=== PATIENT | female | born 1950 | race Caucasian/White ===

== ENCOUNTER 2019-09-11 06:54 | Day surgery (SDC) | payer MEDICARE, BC, OTHER ==
[~2019-09-11] VITALS: Ht 167.6 cm; Wt 89.1 kg
[~2019-09-11 06:54] MED LIST: AMIL5TAB4 PO; CARD180C4 PO; EQL400CA9 PO; KLOR10TA76 PO; LIDOCAINE 1% MDV 20ML VIAL SQ PRN; MULTCAP PO; PRAV20TA2 PO; PROG1CAP8 PO; TORS10TA3 PO
[2019-09-11] MEDS ORDERED: LR 1,000 ML IV ONE (07:00)
[2019-09-11 07:24] LABS: HEMATOCRIT 37.6 % (36.0-47.0); HEMOGLOBIN 12.2 g/dl (12.0-15.5); MEAN CORPUSCULAR HEMOGLOBIN 28.6 pg (27.0-33.0); MEAN CORPUSCULAR HGB CONC 32.4 g/dl (32.0-36.5); MEAN CORPUSCULAR VOLUME 88.3 fl (80.0-96.0); PLATELET COUNT, AUTOMATED 226 10^3/uL (150-450); RED BLOOD COUNT 4.26 10^6/uL (4.00-5.40)
[2019-09-11] MEDS ORDERED: fentaNYL 100 MCG/2 ML INJECTION (J3010) As Ordered ONE (07:58)
[2019-09-11] MEDS ORDERED: MIDAZOLAM INJ 2 MG/2 ML VIAL (J2250) As Ordered ONE (07:59)
[2019-09-11] MEDS ORDERED: dexameTHASONE 4 MG/ML 1ML VIAL (J1100) As Ordered ONE (07:59)
[2019-09-11] MEDS ORDERED: ONDANSETRON 4MG/2ML VIAL (J2405) As Ordered ONE (07:59)
[2019-09-11] MEDS ORDERED: PROPOFOL 200 MG/20 ML VIAL As Ordered ONE (07:59)
[2019-09-11] MEDS ORDERED: LIDOCAINE 2% INJ 100 MG/5 ML SDV (FOR ANES.) As Ordered ONE (07:59)
[2019-09-11] MEDS ORDERED: ACETAMINOPHEN 1000MG 100ML IV BTL (OFIRMEV) (J0131 PER 10MG) As Ordered ONE (08:42)
[2019-09-11] MEDS ORDERED: IBUPROFEN 800 MG TAB As Ordered ONE (09:22)
[2019-09-11] MEDS ORDERED: LR 1,000 ML IV SCH (09:30)
[2019-09-11] MEDS ORDERED: PERCOCET 5MG/325MG TAB PO PRN ×2 (09:30)
[2019-09-11] MEDS ORDERED: HYDROMORPHONE HCL 0.5 MG/ 0.5 ML SYRINGE (J1170 PER 1) IV PRN (09:30)
[2019-09-11] MEDS ORDERED: fentaNYL 100 MCG/2 ML INJECTION (J3010) IV PRN (09:30)
[2019-09-11] MEDS ORDERED: ONDANSETRON 4MG/2ML VIAL (J2405) IV PRN (09:30)
[2019-09-11 09:38] VITALS: BP 141/68
--- NOTE | 2019-09-11 12:46 | ECGEPIP ---
[facility] Test Date: 2019-09-11 Pat Name: TOLU FARR Department: Room: - Gender: Female [employer]: THIAGO : 1950 Requested By: Manish Augustin Order Number: [id number] Reading MD: Milagro Tatum Measurements Intervals [place] Rate: 73 P: -9 [place]: 142 QRS: 32 QRSD: 80 T: 31 QT: 378 QTc: 418 Interpretive Statements SINUS RHYTHM NO PRIOR Electronically Signed on 09-11-2019 12:45:52 EDT by Milagro Tatum
[2019-09-11] MEDS ORDERED: IBUPROFEN 800 MG TAB PO SCH (15:00)
--- NOTE | 2019-09-11 18:58 | RO ---
DATE OF PROCEDURE: 09/11/2019 Angeles is a 68-year-old female with postmenopausal bleeding. After counseling in the office, a decision was made to proceed with a dilation and curettage (D and C), hysteroscopy. The patient also was found to have thickened endometrium on ultrasound. PREOPERATIVE DIAGNOSES: 1. Postmenopausal bleeding. 2. Thickened endometrium. POSTOPERATIVE DIAGNOSES: 1. Postmenopausal bleeding. 2. Thickened endometrium. 3. Endometrial polyp with an irregular endometrial cavity. PROCEDURE: 1. Dilation and curettage. 2. Hysteroscopy. 3. Polypectomy. SURGEON: Manish Augustin DO BASKET PERSON: ANESTHESIA: General. COMPLICATIONS: None. ESTIMATED BLOOD LOSS: Less than 20 mL. FINDINGS: Irregular endometrial cavity with small endometrial polyp. SPECIMENS SENT TO THE LAB: Endometrial curetting and polyp. DESCRIPTION OF PROCEDURE: After obtaining informed consent, the patient was taken to the operating room where general anesthetic was found to be adequate. She was then draped and prepped in the usual sterile fashion in the dorsal lithotomy position. At this point, a straight catheter bladder was performed for approximately 100 mL of clear urine. We then placed a weighted speculum in the posterior fornix of the vagina. Using a Fernandes retractor, the anterior lip of the cervix was then grasped with a single-tooth tenaculum. The uterus was then sounded to approximately 7 cm in size. The cervix was serially dilated, the hysteroscope was inserted. Irregular shape cavity noted with small endometrial polyp. No evidence of any other abnormality. At this point, the hysteroscope was removed. A sharp curettage of the endometrial lining was done and the polyps were also removed. The specimens were sent to pathology for final diagnosis. Good hemostasis noted. All instruments removed. The patient was then taken to the recovery room in stable condition.
== END 2019-09-11 09:57 | disposition home or self-care (01) ==
LOC: M SDC 06:54
PROVIDERS: ATTEND Obstetrics & Gynecology
DX: N95.0 Postmenopausal bleeding (principal); N85.00 Endometrial hyperplasia, unspecified; N84.0 Polyp of corpus uteri; I10 Essential (primary) hypertension; E78.5 Hyperlipidemia, unspecified; Z79.899 Other long term (current) drug therapy; G47.30 Sleep apnea, unspecified; Z88.1 Allergy status to other antibiotic agents
CPT/HCPCS: 36415; 58558; 85027; 86850; 86900; 86901; 88305; 93005; J0131; J1100; J2250; J2405; J3010

== ENCOUNTER 2020-03-16 13:50 | Day surgery (SDC) | payer MEDICARE, BC, OTHER ==
[2020-03-16] VITALS (7 sets, daily range): BP systolic 132–150; BP diastolic 68–88
[~2020-03-16] VITALS: Ht 167.6 cm; Wt 89.8 kg
[~2020-03-16 13:50] MED LIST changes: -LIDOCAINE 1% MDV 20ML VIAL SQ PRN
[2020-03-16] MEDS ORDERED: AMIT8CAP4 PO (13:58)
[2020-03-16] MEDS ORDERED: FERR325T81 PO (13:58)
[2020-03-16] MEDS ORDERED: DULO1CAP6 PO (13:58)
[2020-03-16 14:40] LABS: BASO % 0.4 % (0.0-1.0); EOS # 0.1 10^3/uL (0.0-0.5); EOS % 1.3 % (0.0-3.0); HEMATOCRIT 26.1 % (36.0-47.0); HEMOGLOBIN 8.3 g/dl (12.0-15.5); LYMPH # 1.7 10^3/uL (1.5-5.0); LYMPH % 31.6 % (24.0-44.0); MEAN CORPUSCULAR HEMOGLOBIN 28.9 pg (27.0-33.0); MEAN CORPUSCULAR HGB CONC 31.8 g/dl (32.0-36.5); MEAN CORPUSCULAR VOLUME 90.9 fl (80.0-96.0); MONO # 0.7 10^3/uL (0.0-0.8); MONO % 12.5 % (0.0-5.0); NEUTROPHILS # 2.8 10^3/uL (1.5-8.5); PLATELET COUNT, AUTOMATED 235 10^3/uL (150-450); RED BLOOD COUNT 2.87 10^6/uL (4.00-5.40); WHITE BLOOD COUNT 5.2 10^3/uL (4.0-10.0)
[2020-03-16 14:57] LABS: BLOOD UREA NITROGEN 15 MG/DL (7-18); CARBON DIOXIDE LEVEL 24 MEQ/L (21-32); CHLORIDE LEVEL 105 MEQ/L (98-107); CREATININE FOR GFR 0.71 MG/DL (0.55-1.30); GLOMERULAR FILTRATION RATE > 60.0 (>45); GLUCOSE, FASTING 80 MG/DL (70-100); POTASSIUM SERUM 4.2 MEQ/L (3.5-5.1); SODIUM LEVEL 137 MEQ/L (136-145)
[2020-03-16] MEDS ORDERED: C 50TAB PO (15:36)
[2020-03-16] MEDS ORDERED: ACET-897 PO (15:36)
[2020-03-16] MEDS ORDERED: VITAD1000T PO (15:36)
--- NOTE | 2020-03-16 16:09 | REP ---
PELVIC ULTRASOUND: Real-time sonographic evaluation of the pelvis is performed utilizing transabdominal and endovaginal technique. Urinary bladder is not distended. Uterus measures 10.8 x 5.5 x 6.9 cm. Endometrium is markedly thickened and heterogeneous with somewhat ill-defined margins. Maximum AP diameter is 3.5 cm. There is no endometrial fluid collection. Ovaries are not visualized. No definite adnexal mass or free fluid is seen. Nabothian cysts are seen in the region of the cervix. IMPRESSION: Markedly thickened heterogeneous endometrium, compatible with either hyperplasia or neoplasm. Ovaries are not visualized. No definite adnexal mass. Electronically Signed by Elgin Machado MD 03/16/2020 04:26 P
[2020-03-16] MEDS ORDERED: MIDAZOLAM INJ 2MG/2ML VIAL (J2250 PER 1MG) As Ordered ONE (19:28)
[2020-03-16] MEDS ORDERED: ONDANSETRON 4MG/2ML VIAL As Ordered ONE (19:29)
[2020-03-16] MEDS ORDERED: fentaNYL 250 MCG/5 ML INJECTION (J3010) As Ordered ONE (19:29)
[2020-03-16] MEDS ORDERED: LIDOCAINE 2% 100MG/5ML SDV (FOR ANES.) As Ordered ONE (19:29)
[2020-03-16] MEDS ORDERED: dexameTHASONE 4 MG/ML 1ML VIAL (J1100 PER 1MG) As Ordered ONE (19:29)
[2020-03-16] MEDS ORDERED: propofoL 200 MG/20 ML VIAL As Ordered ONE (19:29)
[2020-03-16] MEDS ORDERED: ROCURONIUM BROMIDE 50 MG/5 ML VIAL As Ordered ONE (19:29)
[2020-03-16] MEDS ORDERED: SUGAMMADEX SODIUM 500 MG/5 ML VIAL (BRIDION) As Ordered ONE (19:29)
[2020-03-16] MEDS ORDERED: FLUORESCEIN 10% (100MG/ML) 5 ML VIAL As Ordered ONE (20:06)
[2020-03-16] MEDS ORDERED: BUPIVACAINE/EPIN 0.25% 30 ML VIAL As Ordered ONE (20:06)
[2020-03-16] MEDS ORDERED: ceFAZolin 2 GM/D5W 50 ML IV BAG (J0690 PER 500MG) As Ordered ONE (20:16)
[2020-03-16] MEDS ORDERED: ONDANSETRON 4 MG TAB PO PRN (21:00)
[2020-03-16] MEDS ORDERED: PERCOCET 5MG/325MG TAB PO PRN (21:00)
[2020-03-16] MEDS: IBUPROFEN 800 MG TAB PO SCH (22:00)
[2020-03-16] MEDS ORDERED: PERCOCET PO (22:21)
[2020-03-16] MEDS ORDERED: IBUP80TA PO (22:21)
[2020-03-16] MEDS ORDERED: HYDROMORPHONE HCL 0.5 MG/ 0.5 ML SYRINGE (J1170 PER 1) IV PRN (23:00)
[2020-03-16] MEDS ORDERED: oxyCODONE 5MG TAB PO PRN (23:00)
[2020-03-16] MEDS ORDERED: LR 1,000 ML IV SCH (23:00)
[2020-03-16] MEDS ORDERED: ONDANSETRON 4MG/2ML VIAL IV PRN (23:00)
[2020-03-16] MEDS ORDERED: fentaNYL 100 MCG/2 ML INJECTION (J3010) IV PRN (23:00)
[2020-03-17] VITALS (9 sets, daily range): BP systolic 115–140; BP diastolic 68–80
--- NOTE | 2020-03-17 00:23 | RO ---
DATE OF PROCEDURE: 03/16/2020 PREOPERATIVE DIAGNOSES: 1. Postmenopausal bleeding. 2. Endometrial polyp. 3. Symptomatic anemia status post 2 units of packed RBC transfusion. 4. Acute bleeding. POSTOPERATIVE DIAGNOSES: 1. Postmenopausal bleeding. 2. Endometrial polyp. 3. Symptomatic anemia status post 2 units of packed RBC transfusion. 4. Acute bleeding. 5. Enlarged uterus with fibroids. PROCEDURE: 1. Robotic-assisted total hysterectomy. 2. Bilateral salpingo-oophorectomy. 3. Cystoscopy. SURGEON: Dr. Augustin ANESTHESIA: General. COMPLICATION: None. ESTIMATED BLOOD LOSS: Less than 50 mL. Michelle is a 69-year-old female with postmenopausal bleeding and endometrial polyp. She presented with excessive bleeding and found to be tachycardiac and symptomatic. Upon evaluation, she was found to have symptomatic anemia. She was originally scheduled for a hysterectomy. She received 2 units of packed red blood cells (RBCs) in the emergency room, continued to bleed, and at this point a decision was made to proceed with the hysterectomy. DESCRIPTION OF PROCEDURE: After obtaining informed consent, patient was taken to the operating room where general anesthetic was found to be adequate. She was then draped and prepped in usual sterile fashion in dorsal lithotomy position. At this point, a Humi-2 uterine manipulator was placed. We then turned our attention to the abdomen, where the abdomen was insufflated with carbon dioxide (CO2) gas to approximately 3.5 liters. Infraumbilical incision was made for the camera port. Then two left lateral ports were placed for robotic arm #1 and the assist port. On the right side, the 8-mm lateral port was also placed. At this point, the robot was brought to the patient's side on the right side at 45-degree angle. Patient was placed in steep Trendelenburg. The camera arm was then docked. The system was then targeted to the target anatomy, and the robotic arm #2 and #1 were docked in similar fashion. A vessel sealer was placed in arm #1. A bipolar grasper placed in arm #2. I then unscrubbed and went to the surgeon console and began surgery. The uterus was found to be enlarged with multiple fibroids. At this point, the infundibulopelvic ligament was identified. Using the vessel sealer, the infundibulopelvic was then cauterized and cut. This was taken down to include the round ligament, the uterine arteries, all way down to the cervix. The opposite side was done in a similar fashion. The anterior leaflet of the broad ligament was dissected off, and the bladder was pushed out of the operative field. At this point, the vessel sealer was then removed and Endo David were placed. Anterior and posterior colpotomy was performed. The uterus and bilateral tubes and ovaries were removed through the vagina. After removing the uterus, a moistened sponge lap was placed in the vagina to maintain pneumoperitoneum. The Endo David were removed. A needle skidder driver was placed. A 2-0 V-Loc suture was then introduced, and the vaginal cuff was closed in a running fashion using the 2-0 V-Loc suture. The peritoneum over the cervix was also closed in a similar fashion. Pelvis copiously irrigated with normal saline and suctioned out. 1 mL of Furacin was given by the anesthesiologist to assist with the cystoscopy. I then rescrubbed and went to the patient's side. Retrograde filled the bladder with 250 mL of normal saline. The Sorto catheter was removed. Cystoscopy was performed. Bilateral ureteral jets were noted. No evidence of any bladder injury noted. At this point, the cystoscope was removed. The bladder emptied out. Attention turned to the abdomen, where the robotic trocars were removed and the trocar site was then closed using #3-0 Vicryl in a subcuticular fashion. 0.25% Marcaine was placed for postoperative pain. Patient tolerated procedure well. She was then transferred to recovery room in stable condition. RADHA
[2020-03-17] MEDS: DOCUSATE SODIUM 100 MG CAP PO SCH ×2 (00:56→09:33)
[2020-03-17] MEDS: LR 1,000 ML IV SCH ×2 (00:57→06:27)
[2020-03-17] MEDS: IBUPROFEN 800 MG TAB PO SCH (06:27)
[2020-03-17 07:32] LABS: BASO % 0.2 % (0.0-1.0); HEMATOCRIT 26.7 % (36.0-47.0); HEMOGLOBIN 8.8 g/dl (12.0-15.5); LYMPH # 0.5 10^3/uL (1.5-5.0); LYMPH % 8.9 % (24.0-44.0); MEAN CORPUSCULAR HEMOGLOBIN 29.2 pg (27.0-33.0); MEAN CORPUSCULAR VOLUME 88.7 fl (80.0-96.0); MONO # 0.2 10^3/uL (0.0-0.8); MONO % 3.9 % (0.0-5.0); NEUTROPHILS # 5.1 10^3/uL (1.5-8.5); NEUTROPHILS % 86.7 % (36.0-66.0); PLATELET COUNT, AUTOMATED 201 10^3/uL (150-450); RED BLOOD COUNT 3.01 10^6/uL (4.00-5.40); WHITE BLOOD COUNT 5.9 10^3/uL (4.0-10.0)
== END 2020-03-17 12:30 | disposition home or self-care (01) ==
LOC: M ED 13:50 → M SDC 13:51 → M MSPAV 23:48 → M SDC 03-17 12:30
PROVIDERS: ATTEND Obstetrics & Gynecology
DX: N95.0 Postmenopausal bleeding (principal); N80.0 Endometriosis of uterus; N84.0 Polyp of corpus uteri; D64.9 Anemia, unspecified; G47.30 Sleep apnea, unspecified; I10 Essential (primary) hypertension; E78.49 Other hyperlipidemia; Z88.1 Allergy status to other antibiotic agents; Z88.8 Allergy status to other drugs, medicaments and biological substances; Z79.899 Other long term (current) drug therapy
CPT/HCPCS: 36415; 36430; 58571; 76830; 76856; 80048; 85025; 86850; 86900; 86901; 86920; 88307; 93041; 94760; 96360; 96361; 99285; J0690; J1100; J2250; J2405; J3010; P9016